=== PATIENT | female | born 1975 | race Caucasian/White ===

== ENCOUNTER 2019-01-28 22:58 | Inpatient (IN) | payer OTHER ==
[2019-01-29] MEDS ORDERED: NACL 0.9% 3 ML SYG IV
[2019-01-29] MEDS ORDERED: hydrOXYzine HCL 50 MG TAB PO (00:30)
[2019-01-29] MEDS: HYDROCODONE/APAP (5/325) TAB PO ×5 (01:13→21:37)
[2019-01-29] MEDS: MIRTAZAPINE 15 MG TAB PO ×2 (01:24→20:48)
[2019-01-29] MEDS: ACCU-CHEK XX (02:00)
[2019-01-29 07:42] LABS: ADD MAN DIFF? NO
[2019-01-29 07:45] LABS: WHITE BLOOD COUNT 7.8 10^3/ul (4.8-10.8)
[2019-01-29 07:46] LABS: BASOPHILS % 0.5 % (0.0-2.0); EOSINOPHILS # 0.2 10^3/ul (0.0-0.5); EOSINOPHILS % 3.1 % (0.0-7.0); HEMATOCRIT 38.3 % (37.0-47.0); HEMOGLOBIN 12.3 g/dl (12.0-16.0); LYMPHOCYTES # 2.5 10^3/ul (0.8-2.9); LYMPHOCYTES % 31.9 % (15.0-51.0); MEAN CORPUSCULAR HEMOGLOBIN 28.4 pg (29.0-33.0); MEAN CORPUSCULAR HGB CONC 32.1 g/dl (32.0-37.0); MEAN CORPUSCULAR VOLUME 88.5 fl (82.0-101.0); MEAN PLATELET VOLUME 9.6 fl (7.4-10.4); MONOCYTE # 0.6 10^3/ul (0.3-0.9); MONOCYTES % 7.3 % (0.0-11.0); NEUTROPHIL # 4.4 10^3/ul (1.6-7.5); NEUTROPHILS % 56.8 % (39.0-77.0); PLATELET COUNT 186 10^3/UL (140-415); RED BLOOD COUNT 4.33 10^6/ul (4.20-5.40); RED CELL DISTRIBUTION WIDTH 12.5 % (11.5-14.5)
[2019-01-29] MEDS: INSULIN ASPART [NOVOLOG] 3 ML PEN SC ×4 (08:00→21:00)
[2019-01-29 08:08] LABS: HEMOGLOBIN A1C 5.8 % (0-5.9)
[2019-01-29 08:36] LABS: ALANINE AMINOTRANSFERASE 13 IU/L (13-69); ALBUMIN 3.4 g/dl (3.3-4.9); ALBUMIN/GLOBULIN RATIO 1.17; ALKALINE PHOSPHATASE 65 IU/L (42-121); ANION GAP 11 (5-13); ASPARTATE AMINO TRANSFERASE 16 IU/L (15-46); BILIRUBIN,INDIRECT 0.5 mg/dl (0-1.1); BILIRUBIN,TOTAL 0.5 mg/dl (0.2-1.3); BLOOD UREA NITROGEN 11 mg/dl (7-20); CALCIUM 8.5 mg/dl (8.4-10.2); CARBON DIOXIDE 23 mmol/L (21-31); CHLORIDE 108 mmol/L (97-110); CHOL/HDL RATIO 7.5 RATIO; CHOLESTEROL 203 mg/dl (100-200); CREATININE 0.72 mg/dl (0.44-1.00); Estimated GFR > 60 mL/min (>60); GLUCOSE 94 mg/dl (70-220); HDL CHOLESTEROL 27 mg/dl (34-88); LDL CHOLESTEROL,CALCULATED 141 mg/dl; MAGNESIUM 1.9 mg/dl (1.7-2.5); PHOSPHORUS 4.6 mg/dl (2.5-4.9); SODIUM 142 mmol/L (135-144); TOTAL PROTEIN 6.3 g/dl (6.1-8.1); TRIGLYCERIDES 177 mg/dl (0-149)
[2019-01-29] MEDS: PROPRANOLOL 20 MG TAB PO ×2 (09:00→20:48)
[2019-01-29] MEDS: ONDANSETRON 4 MG INJ IV (09:01)
[2019-01-29] MEDS: DULOXETINE 30 MG CAP DR PO (09:06)
[2019-01-29] MEDS: hydrOXYzine HCL 25 MG TAB PO (09:06)
[2019-01-29] MEDS ORDERED: VANCOMYCIN IV PER PHARMACY XX (10:00)
[2019-01-29] MEDS: CEFEPIME 1GM/50 ML (PMX) 50 ML IVPB ×2 (11:03→21:37)
[2019-01-29] MEDS: VANCOMYCIN HCL 1.5 GM in SOD CHLORIDE 0.9% 250 ML IVPB (11:40)
[2019-01-29] MEDS ORDERED: GLUCOSE GEL 15 GRAM TUBE BUCCAL (13:30)
[2019-01-29] MEDS ORDERED: GLUCAGON 1 MG INJ IM (13:30)
[2019-01-29] MEDS ORDERED: DEXTROSE 50% 50 ML SYRINGE IV ×2 (13:30)
[2019-01-29] MEDS ORDERED: GLUCOSE GEL 15 GRAM TUBE PO ×2 (13:30)
[2019-01-29] MEDS ORDERED: LORAZEPAM 2 MG INJ IV (16:32)
[2019-01-29] MEDS ORDERED: LORAZEPAM 1 MG TAB PO (16:36)
[2019-01-29] MEDS: LORAZEPAM 1 MG TAB PO (16:47)
[2019-01-29] MEDS: VANCOMYCIN 1 GM 250 ML IVPB (23:17)
[2019-01-30] MEDS: morphine 4 MG/ML VIAL IV (00:08)
[2019-01-30] MEDS: ACCU-CHEK XX (02:00)
[2019-01-30] MEDS: HYDROCODONE/APAP (5/325) TAB PO ×3 (05:28→19:09)
[2019-01-30] MEDS: INSULIN ASPART [NOVOLOG] 3 ML PEN SC ×4 (08:00→21:00)
[2019-01-30] MEDS: DULOXETINE 30 MG CAP DR PO (08:41)
[2019-01-30] MEDS: PROPRANOLOL 20 MG TAB PO ×2 (08:46→20:38)
[2019-01-30] MEDS: CEFEPIME 1GM/50 ML (PMX) 50 ML IVPB ×2 (08:46→20:39)
[2019-01-30] MEDS: hydrOXYzine HCL 25 MG TAB PO (08:51)
[2019-01-30] MEDS: VANCOMYCIN 1 GM 250 ML IVPB ×2 (12:37→23:50)
[2019-01-30] MEDS: LORAZEPAM 1 MG TAB PO ×2 (15:03→23:46)
[2019-01-30] MEDS: ACETAMINOPHEN 325 MG TAB PO ×2 (15:03→23:46)
[2019-01-30] MEDS: MIRTAZAPINE 15 MG TAB PO (20:38)
[2019-01-30 23:14] LABS: VANCOMYCIN,TROUGH 10.2 ug/ml (10.0-20.0)
[2019-01-31] MEDS: ACCU-CHEK XX (02:00)
[2019-01-31 06:39] LABS: BLOOD UREA NITROGEN 10 mg/dl (7-20)
[2019-01-31] MEDS: HYDROCODONE/APAP (5/325) TAB PO ×4 (07:57→21:27)
[2019-01-31] MEDS: INSULIN ASPART [NOVOLOG] 3 ML PEN SC ×2 (08:00→12:00)
[2019-01-31] MEDS: DULOXETINE 30 MG CAP DR PO (08:39)
[2019-01-31] MEDS: CEFEPIME 1GM/50 ML (PMX) 50 ML IVPB (08:41)
[2019-01-31] MEDS: PROPRANOLOL 20 MG TAB PO ×2 (08:41→21:00)
[2019-01-31] MEDS: LORAZEPAM 1 MG TAB PO ×2 (08:48→19:45)
[2019-01-31] MEDS: VANCOMYCIN HCL 1.25 GM in SOD CHLORIDE 0.9% 250 ML IVPB (10:40)
[2019-01-31] MEDS: CEFTRIAXONE 1 GM/50 ML (PMX) 50 ML IVPB (17:44)
[2019-01-31] MEDS: MIRTAZAPINE 15 MG TAB PO (21:24)
[2019-02-01] MEDS: HYDROCODONE/APAP (5/325) TAB PO ×3 (00:24→16:48)
[2019-02-01] MEDS: PROPRANOLOL 20 MG TAB PO ×2 (10:19→20:41)
[2019-02-01] MEDS: DULOXETINE 30 MG CAP DR PO (10:19)
[2019-02-01] MEDS: LIDOCAINE 1% (MPF) 5 ML VIAL ×2 (10:42→14:46)
[2019-02-01] MEDS: LORAZEPAM 1 MG TAB PO ×2 (11:19→19:52)
[2019-02-01] MEDS ORDERED: morphine 2 MG INJ (13:17)
[2019-02-01] MEDS: morphine 2 MG INJ IV ×3 (13:19→23:11)
[2019-02-01] MEDS: CEFTRIAXONE 1 GM/50 ML (PMX) 50 ML IVPB (16:56)
[2019-02-01] MEDS: MIRTAZAPINE 15 MG TAB PO (20:41)
[2019-02-01] MEDS: ACCU-CHEK XX (21:00)
[2019-02-02] MEDS: ACCU-CHEK XX ×2 (07:30→11:30)
[2019-02-02] MEDS: DULOXETINE 30 MG CAP DR PO (08:02)
[2019-02-02] MEDS: morphine 2 MG INJ IV ×2 (08:02→12:10)
[2019-02-02] MEDS: PROPRANOLOL 20 MG TAB PO (09:09)
[2019-02-02] MEDS: HYDROCODONE/APAP (5/325) TAB PO (09:45)
[2019-02-02 13:16] LABS: CA27.29 27 U/mL (<38)
[2019-02-05 01:48] LABS: CANCER ANTIGEN 15-3 13 U/mL (<32)
== END 2019-02-02 14:46 | disposition home or self-care (01) | DRG 601 ==
LOC: PP2 22:58
PROVIDERS: Internal Medicine
DX: N63.13 Unspecified lump in the right breast, lower outer quadrant (principal); N61.0 Mastitis without abscess; F41.0 Panic disorder [episodic paroxysmal anxiety]; N64.52 Nipple discharge; E11.9 Type 2 diabetes mellitus without complications; I10 Essential (primary) hypertension; E66.9 Obesity, unspecified; Z68.32 Body mass index [BMI] 32.0-32.9, adult; E78.2 Mixed hyperlipidemia; Z59.0 Homelessness
CPT/HCPCS: 71550; 76641; 76642; 80053; 80061; 80202; 82565; 82962; 83036; 83735; 84100; 84520; 85025; 86300; 86304; 87070; 87081